=== PATIENT | male | born 1950 | race Caucasian/White ===

== ENCOUNTER 2016-11-24 10:47 | Day surgery (SDC) | payer OTHER ==
[~2016-11-24 10:47] MED LIST: Betamethasone Acetate/Betamethasone Sod Phosphate 30 MG/5 ML MDV ONE; Iopamidol 408 MG/ML 50 ML SDV ONE; Lidocaine 2% 5 ML SDV ONE; Ropivacaine 0.5% 5 MG/ML 30 ML SDV ONE
--- NOTE | 2016-11-24 23:02 | OR ---
SURGEON: Dana Kinney D.O. DATE OF PROCEDURE: 11/24/2016 OR STAFF PRESENT: 1. Lily Garcia RN. 2. Dari Stover RN. WARP TYING MACHINE TENDER: Kiley Alexander RT WOUND CLASSIFICATION: I. PREOPERATIVE DIAGNOSES: 1. Lumbar degenerative disk disease. 2. Lumbar spinal stenosis. 3. Lumbar radiculopathy. Post OP DX: same PROCEDURE PERFORMED: 1. Caudal epidural steroid injection. 2. Fluoroscopic guidance for needle placement. 3. Local with oral Valium for sedation. SCREENING QUESTIONS: The patient answered "no" to all of the following questions: 1. Are you allergic to latex? 2. Do you have a bleeding disorder? 3. Do you have any current local or systemic infections? 4. Are you taking any anti-inflammatories or blood thinners? 5. Do you have any joint replacements, heart valve replacements, or a pacemaker? DESCRIPTION OF PROCEDURE: The patient had the procedure thoroughly explained including all possible risks, benefits and alternatives. Consent was signed in my clinic indicating understanding and willingness to proceed. The patient presented to [facility] and was escorted to the dressing room to disrobe and change into a hospital gown. Preoperative vital signs were taken and stable. The patient reported that Valium was taken prior to the procedure. The patient was brought back to the procedure room and placed in the prone position on the procedure room table. A pillow was placed under the hips in order to flatten the lumbar lordosis. The back was prepped with ChloraPrep and sterilely draped. All personnel in the operating room were dressed in appropriate attire including surgical scrubs, head and shoe covers. This was to ensure sterility while in the treatment room. During the time fluoroscopy was in use, all personnel in the operating room wore lead elias with thyroid collars. Sterile technique was used throughout the procedure. The patient was awake and conversant throughout the procedure. There was no evidence of infection at the site of needle insertion. Skeletal landmarks were identified under fluoroscopy for the caudal epidural. Skin was anesthetized with 2% lidocaine with a sterile 27-gauge 1.5 inch needle. Then a 20-gauge Tuohy epidural needle was placed in the epidural space with loss of resistance technique under fluoroscopic guidance. No heme, cerebrospinal fluid, or paresthesias were noted. Isovue-200 contrast dye was injected in 0.2 cubic centimeter increments and seen to outline the epidural space in both AP and lateral views. There was no intravascular flow pattern observed under live fluoroscopy. Then 12 milligrams of Celestone was slowly injected after negative aspiration. The patient tolerated the procedure well. Vital signs were stable during and after the procedure. The staff escorted the patient to the recovery area and the patient was released in stable condition after a brief stay in the recovery room monitored by the nurse. The patient was given both oral and written discharge and follow up instructions with recommendation to follow up given for 2-3 weeks. The patient voiced understanding including understanding of those signs and symptoms that would require emergency care. The patient knows how to contact the office if there are any additional problems or questions in the meantime. PREOPERATIVE PAIN: 6/10. POSTOPERATIVE PAIN: 0/10. FOLLOWUP: Follow up in the Pain Clinic in 3 weeks. DORIS / GERMAIN /[id number] LOPEZ
== END 2016-11-24 13:00 | disposition home or self-care (01) ==
LOC: MW.SDS 10:47
PROVIDERS: ATTEND Anesthesiology
DX: M51.16 Intervertebral disc disorders with radiculopathy, lumbar region (principal); M48.06 Spinal stenosis, lumbar region; Z79.82 Long term (current) use of aspirin; Z79.899 Other long term (current) drug therapy; Z86.39 Personal history of other endocrine, nutritional and metabolic disease; Z87.891 Personal history of nicotine dependence
CPT/HCPCS: 62311; 62323; J0702; Q9966; 62322; J2795

== ENCOUNTER 2016-12-24 11:00 | Day surgery (SDC) | payer OTHER ==
[2016-12-24] MEDS ORDERED: Betamethasone Acetate/Betamethasone Sod Phosphate 30 MG/5 ML MDV ONE (12:33)
[2016-12-24] MEDS ORDERED: Lidocaine 2% 5 ML SDV ONE (12:33)
[2016-12-24] MEDS ORDERED: Ropivacaine 0.5% 5 MG/ML 30 ML SDV ONE (12:33)
[2016-12-24] MEDS ORDERED: Iopamidol 408 MG/ML 50 ML SDV ONE (12:33)
--- NOTE | 2016-12-31 07:07 | OR ---
SURGEON: Dana Kinney D.O. DATE OF PROCEDURE: 12/24/2016 OR STAFF PRESENT: 1. Parminder Stevenson RN. 2. Roverto Sandhu RN. 3. Madhavi Torres RN. WOUND CLASSIFICATION: I. TELEPHONE INFORMATION CLERK: Katie Brown. PREOPERATIVE DIAGNOSES: 1. Lumbar spondylosis. 2. Lumbar facet syndrome. POSTOPERATIVE DIAGNOSES: 1. Lumbar spondylosis. 2. Lumbar facet syndrome. PREOPERATIVE PAIN: 8/10. POSTOPERATIVE PAIN: 0/10. FOLLOWUP: Follow up in the pain clinic with pain diary in the morning. PROCEDURE PERFORMED: Right L3, L4, L5 lumbar medial branch blocks. Left L3,L4,L5 lumbar medial branch blocks SCREENING QUESTIONS: The patient answered "No" to all the following questions: 1. Are you allergic to iodine, Betadine or latex? 2. Do you have a bleeding disorder? 3. Are you on anti-inflammatories or blood thinners? 4. Do you have any current local or systemic infections? MEDICAL NECESSITY: This is a patient with chronic low back pain who comes in for the above diagnostic procedure. This procedure is being performed in accordance with national guidelines written by the [employer]; please see medical necessity note in chart. DESCRIPTION OF PROCEDURE: The patient had the procedure thoroughly explained including risks, benefits and alternatives. Consent was signed in my clinic indicating understanding and willingness to proceed. The patient presented to [facility] and was escorted to the dressing room to disrobe and change into a hospital gown. Preoperative history and screening were performed by my nurse. Vital signs were taken and stable. The patient reported that Valium 10 milligrams was taken prior to the procedure. The patient was brought back to the procedure room and placed in the prone position on the procedure room table. A pillow was placed under the abdomen in order to flatten the lumbar lordosis. The back was prepped with ChloraPrep and sterilely draped. All personnel in the procedure room were dressed in appropriate attire including surgical scrubs, head and shoe covers. This was to ensure sterility while in the treatment room. During the time fluoroscopy was in use all personnel in the operating room wore lead elias with thyroid collars. Sterile technique was used during the procedure. The fluoroscope was positioned to provide a right oblique view. Then the right L3 medial branch block was begun by anesthetizing the skin and soft tissues with 2 cubic centimeters of 2% Preservative-Free Lidocaine with a 25-gauge 1.5 inch needle. There were no signs of infection at the site of needle skin insertions. Using fluoroscopic guidance a sterile 22-gauge 3.5 inch spinal needle was positioned at the junction of the transverse process with the superior articular process of the L4 vertebral body. Precise needle placement was confirmed by fluoroscopy and 0.2 cubic centimeters of IsoVue-200 contrast dye which was injected through microbore tubing under live fluoroscopy and showed no intravascular flow pattern and adequate flow over the target L3 medial branch. Then 0.5 cubic centimeters of 0.5% Ropivacaine Preservative-Free was injected slowly without complications after negative aspiration. Then the fluoroscope was positioned to provide a right oblique view for the right L4 medial branch. This was begun by anesthetizing the skin and soft tissues. The fluoroscope was positioned and a sterile 22-gauge 3.5 inch needle was placed at the junction of the transverse process in the superior articular process of the L5 vertebral body. Precise needle placement was confirmed by fluoroscopy. Then 0.2 cubic centimeters of IsoVue-200 contrast dye was injected through microbore tubing under live fluoroscopy and showed no intravascular flow pattern and adequate flow over the target medial branch. After negative aspiration, 0.5 cubic centimeters of 0.5% Ropivacaine was injected without complications. The fluoroscope was then positioned to provide a right L5 dorsal ramus block. This was begun by anesthetizing the skin and soft tissues over the right sacral sulcus. Then using fluoroscopic guidance, a sterile 22-gauge 3.5 inch spinal needle was positioned at the right sacral ala. Precise needle placement was confirmed by fluoroscopy in AP and oblique views, and 0.2 cubic centimeters of IsoVue-200 contrast dye was injected through microbore tubing under live fluoroscopy and showed no intravascular flow pattern and adequate flow over the target nerves. After negative aspiration, 0.5 cubic centimeters of 0.5% Ropivacaine was injected. No complications were noted. Then attention was turned to the left side. The fluoroscope was positioned to provide a left oblique view for the left L3 medial branch block. This was begun by anesthetizing the skin and soft tissues. Then a 22-gauge 3.5 inch needle was positioned at the junction of the transverse process and the superior articular process at the left L4 vertebral body. Precise needle placement was confirmed by fluoroscopy with 0.2 cubic centimeters of IsoVue-200 contrast dye injected through microbore tubing under live fluoroscopy showing no intravascular flow pattern and adequate flow over the target medial branch of L3 on the left. After negative aspiration, 0.5 cubic centimeters of 0.5% Ropivacaine was injected without complications. The fluoroscope was positioned then to provide a left L4 medial branch block. The skin was anesthetized. Then a 22-gauge 3.5 inch spinal needle was positioned at the junction of the transverse process in the superior articular process of the L5 vertebral body on the left. Precise needle placement was confirmed by fluoroscopy and with 0.2 cubic centimeters of IsoVue-200 contrast dye injected through microbore tubing showing no intravascular flow pattern and adequate flow over the target medial branch of L4 on the left. Then 0.5 cubic centimeters of 0.5% Ropivacaine was injected after negative aspiration without complications. Then the fluoroscope was positioned for the left L5 dorsal ramus block. This was begun by anesthetizing the skin and soft tissues. Then with fluoroscopic guidance a sterile 22-gauge 3.5 inch spinal needle was positioned at the left sacral ala. Precise needle placement was confirmed with 0.2 cubic centimeters of IsoVue-200 contrast dye injected through microbore tubing under live fluoroscopy showing no intravascular flow pattern and adequate flow over the target L5 nerve and then 0.5 cc .5% ropivicaine was injected. The procedure was well tolerated and vital signs were stable during and after the procedure. The staff escorted the patient to the recovery area. The patient was given both oral and written discharge and followup instructions. The patient will follow up with a pain diary which will be evaluated over this evening doing things that would normally cause pain. We will evaluate the efficacy of the diagnostic lumbar medial branch blocks as the patient will follow up in the clinic the next day. The patient was given both oral and written discharge and followup instructions. The patient voiced understanding including understanding of those signs and symptoms that would require emergency care and knows how to contact the office if there are any questions or concerns in the meantime. DORIS / GERMAIN /[id number] LOPEZ
== END 2016-12-24 13:30 | disposition home or self-care (01) ==
LOC: MW.SDS 11:00
PROVIDERS: ATTEND Anesthesiology
DX: M47.896 Other spondylosis, lumbar region (principal); M12.88 Other specific arthropathies, not elsewhere classified, other specified site; G89.4 Chronic pain syndrome; M54.16 Radiculopathy, lumbar region; E11.9 Type 2 diabetes mellitus without complications; Z87.891 Personal history of nicotine dependence; Z79.82 Long term (current) use of aspirin; Z79.84 Long term (current) use of oral hypoglycemic drugs; Z79.4 Long term (current) use of insulin; Z79.899 Other long term (current) drug therapy
CPT/HCPCS: 64450; 64493; 64494; J2795; Q9966; J0702

== ENCOUNTER 2016-12-31 11:12 | Day surgery (SDC) | payer OTHER ==
[2016-12-31] MEDS ORDERED: Betamethasone Acetate/Betamethasone Sod Phosphate 30 MG/5 ML MDV ONE (11:24)
[2016-12-31] MEDS ORDERED: Lidocaine 2% 5 ML SDV ONE (11:24)
[2016-12-31] MEDS ORDERED: Ropivacaine 0.5% 5 MG/ML 30 ML SDV ONE (11:24)
[2016-12-31] MEDS ORDERED: Iopamidol 408 MG/ML 50 ML SDV ONE (11:24)
--- NOTE | 2016-12-31 18:07 | OR ---
SURGEON: Dana Kinney D.O. DATE OF PROCEDURE: 12/31/2016 OR STAFF PRESENT: 1. Lily Garcia RN. 2. Parminder Stevenson RN. 3. Madhavi Torres RN. PREOPERATIVE DIAGNOSES: 1. Lumbar spondylosis. 2. Chronic low back pain. POSTOPERATIVE DIAGNOSES: 1. Lumbar spondylosis. 2. Chronic low back pain. PROCEDURE PERFORMED: 1. Right L5-S1 facet joint injection. 2. Fluoroscopic guidance for needle placement. 3. Local with oral Valium for sedation. SCREENING QUESTIONS: The patient answered "no" to all of the following questions: 1. Are you allergic to iodine, Betadine or latex? 2. Do you have a bleeding disorder? 3. Do you have any joint replacements, heart valve replacements, or a pacemaker? 4. Are you allergic to anti-inflammatories or blood thinners? 5. Do you have any current local or systemic infections? DESCRIPTION OF PROCEDURE: The patient had the procedure thoroughly explained including risks, benefits and alternatives. Consent was signed in my clinic indicating understanding and willingness to proceed. The patient presented to [facility] where the patient was escorted to the dressing room to disrobe and change into a hospital gown. Preoperative vital signs were taken and stable. The patient reported that Valium was taken prior to the procedure. The patient was brought to the procedure room and placed in the prone position on the table. A pillow was placed under the abdomen in order to flatten the lumbar lordosis. The back was prepped with ChloraPrep and sterilely draped. All personnel in the operating room were dressed in appropriate attire including surgical scrubs, head and shoe covers. This was to ensure sterility while in the treatment room. During the time fluoroscopy was in use, all personnel in the operating room wore lead elias with thyroid collars. Sterile technique was used during the procedure. The fluoroscope was placed for the lumbar L5- S1 facet injection. There was no sign of infection at the skin site for needle insertion. The skin was anesthetized with 2% lidocaine with a 27 gauge 1-1/2 inch needle. Then a 22 gauge 3-1/2 inch spinal needle, advanced to the " ear of the leslie dog". Under direct fluoroscopic guidance needle position at midline facet was verified in three views; AP, oblique and lateral, with 0.2 cubic centimeters increments of Isovue-200 dye. No intravascular flow pattern was observed under live fluoroscopy. A total of 6 milligrams of Celestone and 2% lidocaine PF was slowly injected after negative aspiration of heme, cerebrospinal fluid and no paresthesias were noted. The needle was cleared prior to removal from the skin. No adverse reactions were noted. The patient was brought to the recovery room awake and in good condition by my staff. The patient was monitored and discharge instructions were given after a brief stay in the recovery area. Both oral and written discharge and follow up instructions were given. The patient will follow up in the clinic in 3-4 weeks post procedure to evaluate the efficacy. The patient verbalized understanding including understanding of those signs and symptoms that would require emergency care and knows how to contact the office if there are any problems or questions in the meantime. PREOPERATIVE PAIN: 8/10. POSTOPERATIVE PAIN: 1 to 2. FOLLOWUP: Follow up in the Pain Clinic in 3 weeks. DORIS / GERMAIN /[id number] LOPEZ
== END 2016-12-31 12:55 | disposition home or self-care (01) ==
LOC: MW.SDS 11:12
PROVIDERS: ATTEND Anesthesiology
PROC: 3E0U3BZ Introduction of Anesthetic Agent into Joints, Percutaneous Approach (ICD-10-PCS; principal; 2016-12-31)
DX: M47.896 Other spondylosis, lumbar region (principal); G89.4 Chronic pain syndrome; M54.16 Radiculopathy, lumbar region; E11.9 Type 2 diabetes mellitus without complications; Z87.891 Personal history of nicotine dependence; Z79.4 Long term (current) use of insulin; Z79.84 Long term (current) use of oral hypoglycemic drugs; Z79.899 Other long term (current) drug therapy
CPT/HCPCS: 64493; J0702; J2795; Q9966

== ENCOUNTER → 2017-02-03 | Outpatient (CLI) | payer OTHER ==
--- NOTE | 2017-02-04 10:40 | MR ---
EXAMINATION: MRI of thoracic spine HISTORY: Radiculopathy COMPARISON: None TECHNIQUE: Multiplanar and multisequence images obtained through the thoracic spine without contrast . FINDINGS: The thoracic spinal alignment is normal. The vertebral body heights appear well maintained . There is no abnormal bone marrow signal. Small hemangiomas are noted at the T9 and T11 vertebral b odies. The thoracic spinal cord signal is normal. The paravertebral soft tissues appear normal. Ther e is no significant disc bulge, spinal canal stenosis, neural foraminal stenosis. IMPRESSION: Grossly unremarkable MRI of thoracic spine.
== END ==
LOC: MW.MRI 14:22
PROVIDERS: ATTEND Anesthesiology
DX: M54.9 Dorsalgia, unspecified (principal); M54.16 Radiculopathy, lumbar region
CPT/HCPCS: 72146; 72146-26

== ENCOUNTER 2017-09-29 23:04 | Emergency (ER) | payer OTHER ==
[2017-09-29] MEDS ORDERED: Sodium Chloride 0.9% 1,000 ML IV ONE (23:10)
--- NOTE | 2017-09-29 23:11 | EDM.PDOC ---
ED HPI GENERAL MEDICAL PROBLEM - General Chief Complaint: Diabetic Complaint Stated Complaint: LOW BLOOD SUGAR Time Seen by Provider: 09/29/17 23:11 Source of Information: Reports: Patient - History of Present Illness INITIAL COMMENTS - FREE TEXT/NARRATIVE: HISTORY AND PHYSICAL: History of present illness: [Patient presents with a history of low blood sugar after taking his evening Lantus dose, after dinner tonight he took his evening Lantus of 35 units and noted that his glucose was 50 which prompted him to eat more dinner as well as some ice cream and candy. He presents by private vehicle as such On arrival was glucose is 69 we have been watching and that is been trending up over the last hour to hour and a half previous glucose was 122 we will be rechecking him again shortly. On arrival his blood pressure was 80/60 cuff size was changed his blood pressure is been in the 120s over 60s since he does check his blood pressure daily and this is his normal blood pressure He has no symptoms such as fever nausea vomiting diarrhea constipation chest pain shortness breath headache dizziness palpitation about a urine symptoms no diaphoresis ] Review of systems: As per history of present illness and below otherwise all systems reviewed and negative. Past medical history: As per history of present illness and as reviewed below otherwise noncontributory. Surgical history: As per history of present illness and as reviewed below otherwise noncontributory. Social history: No reported history of drug or alcohol abuse. Family history: As per history of present illness and as reviewed below otherwise noncontributory. Physical exam: HEENT: Atraumatic, normocephalic, pupils reactive, negative for conjunctival pallor or scleral icterus, mucous membranes moist, throat clear, neck supple, nontender, trachea midline. Lungs: Clear to auscultation, breath sounds equal bilaterally, chest nontender. Heart: S1S2, regular, negative for clicks, rubs, or JVD. Abdomen: Soft, nondistended, nontender. Negative for masses or hepatosplenomegaly. Negative for costovertebral tenderness. Pelvis: Stable nontender. Genitourinary: Deferred. Rectal: Deferred. Extremities: Atraumatic, negative for cords or calf pain. Neurovascular unremarkable. Neuro: Awake, alert, oriented. Cranial nerves II through XII unremarkable. Cerebellum unremarkable. Motor and sensory unremarkable throughout. Exam nonfocal. Diagnostics: []CBC CMP UA troponin I EKG Chest 1 view Therapeutics: []1 L normal saline bolus initiated stopped after 500 mL Impression: [Hypotension secondary to cuff size Hypoglycemia resolved stable and actually increasing Chronic history of baseline] Definitive disposition and diagnosis as appropriate pending reevaluation and review of above. - Related Data Allergies Allergy/AdvReac Type Severity Reaction Status Date / Time No Known Allergies Allergy Verified 09/29/17 23:21 Home Meds: Home Meds Aspirin [[place] Aspirin] 81 mg PO DAILY 11/11/16 [History] Gabapentin [Neurontin] 100 mg PO TID 11/11/16 [History] Hydrochlorothiazide 25 mg PO DAILY 11/11/16 [History] Lisinopril 20 mg PO DAILY 11/11/16 [History] [place]-3S/DHA/Epa/Fish Oil [Fish Oil [place]-3 Softgel] 1 each PO DAILY 11/11/16 [ History] Tamsulosin HCl [Flomax] 0.4 mg PO DAILY 11/11/16 [History] amLODIPine [Norvasc] 10 mg PO BEDTIME 11/11/16 [History] atorvaSTATin Calcium [Atorvastatin Calcium] 80 mg PO BEDTIME 11/11/16 [History] metFORMIN HCl [Metformin HCl] 1,000 mg PO BID 11/11/16 [History] Past Medical History HEENT History: Reports: Impaired Vision Cardiovascular History: Reports: Hypertension Respiratory History: Reports: None, Other (See Below) Other Respiratory History: pt reports being treated with steriod to help breathing Gastrointestinal History: Reports: None Genitourinary History: Reports: Other (See Below) Other Genitourinary History: difficulty intiating urine flow Musculoskeletal History: Reports: Back Pain, Chronic Neurological History: Reports: None Psychiatric History: Reports: None Endocrine/Metabolic History: Reports: Diabetes, Type II - Infectious Disease History Infectious Disease History: Reports: Chicken Pox Social & Family History - Family History Family Medical History: Noncontributory - Tobacco Use Smoking Status *Q: Former Smoker - Recreational Drug Use Recreational Drug Use: Yes Drug Use in Last 12 Months: No Recreational Drug Type: Reports: Marijuana/Hashish ED ROS GENERAL - Review of Systems Review Of Systems: ROS reveals no pertinent complaints other than HPI. ED EXAM GENERAL NO PERIP PULSE - Physical Exam Exam: See Below Course - Vital Signs Last Recorded V/S: Last Vital Signs Temp 97.7 F 09/29/17 23:04 Pulse 91 09/29/17 23:57 Resp 18 09/29/17 23:57 BP 108/60 09/29/17 23:57 Pulse Ox 97 09/29/17 23:57 - Orders/Labs/Meds Orders: Active Orders 24 hr Category Date Time Status Accu Check [Blood Glucose Check, Bedside] [RC] ONETIME Care 09/29/17 23:10 Active EKG Documentation Completion [RC] STAT Care 09/29/17 23:09 Active Chest 1V Frontal [CR] Stat Exams 09/29/17 23:12 Taken Labs: Laboratory Tests 09/29/17 09/29/17 09/29/17 Range/Units 23:15 23:15 23:34 WBC 8.33 (4.0-11.0) K/uL RBC 4.73 (4.50-5.90) M/uL Hgb 12.1 L (13.0-17.0) g/dL Hct 38.5 (38.0-50.0) % MCV 81.4 (80.0-98.0) fL MCH 25.6 L (27.0-32.0) pg MCHC 31.4 (31.0-37.0) g/dL RDW Std Deviation 45.9 (28.0-62.0) fl RDW Coeff of Rachel 16 H (11.0-15.0) % Plt Count 281 (150-400) K/uL MPV 10.40 (7.40-12.00) fL Neut % (Auto) 48.8 (48.0-80.0) % Lymph % (Auto) 36.3 (16.0-40.0) % Ashley % (Auto) 10.8 (0.0-15.0) % Eos % (Auto) 3.6 (0.0-7.0) % Baso % (Auto) 0.5 (0.0-1.5) % Neut # (Auto) 4.1 (1.4-5.7) K/uL Lymph # (Auto) 3.0 H (0.6-2.4) K/uL Ashley # (Auto) 0.9 H (0.0-0.8) K/uL Eos # (Auto) 0.3 (0.0-0.7) K/uL Baso # (Auto) 0.0 (0.0-0.1) K/uL Nucleated RBC % 0.0 /100WBC Nucleated RBCs # 0 K/uL Sodium 144 (136-146) mmol/L Potassium 3.8 (3.5-5.1) mmol/L Chloride 103 (98-110) mmol/L Carbon Dioxide 27 (21-31) mmol/L BUN 30 H (6.0-23.0) mg/dL Creatinine 1.2 (0.6-1.5) mg/dL Est Cr Clr Drug Dosing 58.14 mL/min Estimated GFR (MDRD) > 60.0 ml/min Glucose 82 (60-110) mg/dL POC Glucose (60-110) mg/dL Calcium 9.7 (8.8-10.8) mg/dL Total Bilirubin 0.4 (0.1-1.5) mg/dL AST 15 (5-40) IU/L ALT 11 (8-54) IU/L Alkaline Phosphatase 92 (40-150) Troponin I < 0.10 (0.0-0.29) NG/ML Total Protein 6.9 (6.0-8.0) g/dL Albumin 4.0 (3.4-4.8) g/dL Globulin 2.9 (2.0-3.5) g/dL Albumin/Globulin Ratio 1.4 (1.3-2.8) Amylase 66 (10-90) U/L Lipase 21 (7-80) U/L Urine Color YELLOW Urine Appearance CLEAR Urine pH 6.0 (5.0-8.0) Ur Specific [place] 1.025 (1.001-1.035) Urine Protein NEGATIVE (NEGATIVE) mg/dL Urine Glucose (UA) NEGATIVE (NEGATIVE) mg/dL Urine Ketones TRACE H (NEGATIVE) mg/dL Urine Occult Blood NEGATIVE (NEGATIVE) Urine Nitrite NEGATIVE (NEGATIVE) Urine Bilirubin NEGATIVE (NEGATIVE) Urine Urobilinogen 0.2 (<2.0) EU/dL Ur Leukocyte Esterase NEGATIVE (NEGATIVE) Urine RBC 0-1 (0-2/HPF) Urine WBC 0-1 (0-5/HPF) Ur Epithelial Cells RARE (NONE-FEW) Urine Bacteria RARE (NEGATIVE) Urine Mucus LIGHT (NONE-MOD) 09/30/17 Range/Units 00:18 WBC (4.0-11.0) K/uL RBC (4.50-5.90) M/uL Hgb (13.0-17.0) g/dL Hct (38.0-50.0) % MCV (80.0-98.0) fL MCH (27.0-32.0) pg MCHC (31.0-37.0) g/dL RDW Std Deviation (28.0-62.0) fl RDW Coeff of Rachel (11.0-15.0) % Plt Count (150-400) K/uL MPV (7.40-12.00) fL Neut % (Auto) (48.0-80.0) % Lymph % (Auto) (16.0-40.0) % Ashley % (Auto) (0.0-15.0) % Eos % (Auto) (0.0-7.0) % Baso % (Auto) (0.0-1.5) % Neut # (Auto) (1.4-5.7) K/uL Lymph # (Auto) (0.6-2.4) K/uL Ashley # (Auto) (0.0-0.8) K/uL Eos # (Auto) (0.0-0.7) K/uL Baso # (Auto) (0.0-0.1) K/uL Nucleated RBC % /100WBC Nucleated RBCs # K/uL Sodium (136-146) mmol/L Potassium (3.5-5.1) mmol/L Chloride (98-110) mmol/L Carbon Dioxide (21-31) mmol/L BUN (6.0-23.0) mg/dL Creatinine (0.6-1.5) mg/dL Est Cr Clr Drug Dosing mL/min Estimated GFR (MDRD) ml/min Glucose (60-110) mg/dL POC Glucose 122 H (60-110) mg/dL Calcium (8.8-10.8) mg/dL Total Bilirubin (0.1-1.5) mg/dL AST (5-40) IU/L ALT (8-54) IU/L Alkaline Phosphatase (40-150) Troponin I (0.0-0.29) NG/ML Total Protein (6.0-8.0) g/dL Albumin (3.4-4.8) g/dL Globulin (2.0-3.5) g/dL Albumin/Globulin Ratio (1.3-2.8) Amylase (10-90) U/L Lipase (7-80) U/L Urine Color Urine Appearance Urine pH (5.0-8.0) Ur Specific [place] (1.001-1.035) Urine Protein (NEGATIVE) mg/dL Urine Glucose (UA) (NEGATIVE) mg/dL Urine Ketones (NEGATIVE) mg/dL Urine Occult Blood (NEGATIVE) Urine Nitrite (NEGATIVE) Urine Bilirubin (NEGATIVE) Urine Urobilinogen (<2.0) EU/dL Ur Leukocyte Esterase (NEGATIVE) Urine RBC (0-2/HPF) Urine WBC (0-5/HPF) Ur Epithelial Cells (NONE-FEW) Urine Bacteria (NEGATIVE) Urine Mucus (NONE-MOD) Meds: Medications Discontinued Medications Generic Name Dose Route Start Last Admin Trade Name Freq PRN Reason Stop Dose Admin Sodium Chloride 1,000 mls @ 999 mls/hr 09/29/17 23:10 09/29/17 23:29 Normal Saline IV 09/30/17 00:10 999 mls/hr STAT ONE Administration Departure - Departure Time of Disposition: 01:02 Disposition: Home, Self-Care 01 Condition: Good Clinical Impression: Hypoglycemia - Discharge Information Referrals: Shannan Ferguson FI[employer] SPECIALIST [Primary Care Provider] - Forms: ED Department Discharge Additional Instructions: The following information is given to patients seen in the emergency department who are being discharged to home. This information is to outline your options for follow-up care. We provide all patients seen in our emergency department with a follow-up referral. The need for follow-up, as well as the timing and circumstances, are variable depending upon the specifics of your emergency department visit. If you don't have a primary care physician on staff, we will provide you with a referral. We always advise you to contact your personal physician following an emergency department visit to inform them of the circumstance of the visit and for follow-up with them and/or the need for any referrals to a consulting specialist. The emergency department will also refer you to a specialist when appropriate. This referral assures that you have the opportunity for follow-up care with a specialist. All of these measure are taken in an effort to provide you with optimal care, which includes your follow-up. Under all circumstances we always encourage you to contact your private physician who remains a resource for coordinating your care. When calling for follow-up care, please make the office aware that this follow-up is from your recent emergency room visit. If for any reason you are refused follow-up, please contact the [facility] emergency department at and asked to speak to the emergency department charge nurse. - My Orders Last 24 Hours: My Active Orders 09/29/17 23:09 EKG Documentation Completion [RC] STAT 09/29/17 23:10 Accu Check [Blood Glucose Check, Bedside] [RC] ONETIME 09/29/17 23:12 Chest 1V Frontal [CR] Stat - Assessment/Plan Last 24 Hours: My Active Orders 09/29/17 23:09 EKG Documentation Completion [RC] STAT 09/29/17 23:10 Accu Check [Blood Glucose Check, Bedside] [RC] ONETIME 09/29/17 23:12 Chest 1V Frontal [CR] Stat
[2017-09-29 23:44] LABS: CHLORIDE,CL 103 mmol/L (98-110); SODIUM,NA 144 mmol/L (136-146)
[2017-09-30 01:03] VITALS: BP 112/63
--- NOTE | 2017-09-30 09:12 | CR ---
EXAM DATE: 09/29/17 PATIENT'S AGE: 66 Patient: JONNATHAN PARKER Facility: [place], [place] Site . Site : 1950 Study: XRay Chest [id number] 11:32:42 PM Ordering Physician: Belia Silver Final Report: Indication: Low blood sugar. Comparison: None. Findings: The bony thorax and soft tissues are intact. Cardiac and mediastinal silhouettes are normal. The pulmonary vasculature is normal. The lungs are free of infiltrate. Impression: No active cardiopulmonary disease. Dictated by Noemy Nance MD @ Sep 29 2017 11:35PM (Electronic Signature) Report Signed by Proxy. [facility]
== END 2017-09-30 01:13 | disposition home or self-care (01) ==
LOC: MW.ED 23:04
DX: E11.649 Type 2 diabetes mellitus with hypoglycemia without coma (principal); I95.9 Hypotension, unspecified; I10 Essential (primary) hypertension; Z79.82 Long term (current) use of aspirin; Z79.84 Long term (current) use of oral hypoglycemic drugs; Z79.899 Other long term (current) drug therapy; Z87.891 Personal history of nicotine dependence
CPT/HCPCS: 71045; 80053; 81001; 82150; 82962; 83690; 84484; 85025; 93005; 96360; 99285; J7040; 99283

== ENCOUNTER 2019-04-22 19:34 | Emergency (ER) | payer OTHER, MEDICARE ==
--- NOTE | 2019-04-22 19:48 | EDM.PDOC ---
ED HPI GENERAL MEDICAL PROBLEM - General Chief Complaint: Genitourinary Problem Stated Complaint: NOT VOIDING Time Seen by Provider: 04/22/19 19:42 - History of Present Illness INITIAL COMMENTS - FREE TEXT/NARRATIVE: HISTORY AND PHYSICAL: History of present illness: Patient is a 68-year-old male with history of diabetes and hypertension who was recently treated for herpes zoster who presents with concern of acute urinary retention states last significant urination was he states he does normally urinates frequent small amounts but has not been told of any prostate pathology prior to this. Patient denies fever chills he has had some associated nausea Review of systems: As per history of present illness and below otherwise all systems reviewed and negative. Past medical history: As per history of present illness and as reviewed below otherwise noncontributory. Surgical history: As per history of present illness and as reviewed below otherwise noncontributory. Social history: No reported history of drug or alcohol abuse. Family history: As per history of present illness and as reviewed below otherwise noncontributory. Physical exam: HEENT: Atraumatic, normocephalic, pupils reactive, negative for conjunctival pallor or scleral icterus, mucous membranes moist, throat clear, neck supple, nontender, trachea midline. Lungs: Clear to auscultation, breath sounds equal bilaterally, chest nontender. Heart: S1S2, regular, negative for clicks, rubs, or JVD. Abdomen: Soft, protuberant with suprapubic fullness and tenderness consistent with bladder distention. Negative for masses or hepatosplenomegaly. Negative for costovertebral tenderness. Pelvis: Stable nontender. Genitourinary: Deferred. Rectal: Deferred. Extremities: Atraumatic, negative for cords or calf pain. Neurovascular unremarkable. Neuro: Awake, alert, oriented. Cranial nerves II through XII unremarkable. Cerebellum unremarkable. Motor and sensory unremarkable throughout. Exam nonfocal. Diagnostics: CBC CMP UA Therapeutics: Thompson catheter with leg bag Impression: #1 acute urinary retention #2 history of diabetes #3 history of recent herpes zoster #4 history of hypertension Definitive disposition and diagnosis as appropriate pending reevaluation and review of above. - Related Data Allergies Allergy/AdvReac Type Severity Reaction Status Date / Time No Known Allergies Allergy Verified 04/22/19 19:44 Home Meds: Home Meds Aspirin [[place] Aspirin] 81 mg PO DAILY 11/11/16 [History] Lisinopril 10 mg PO DAILY 11/11/16 [History] Tamsulosin HCl [Flomax] 0.8 mg PO DAILY 11/11/16 [History] amLODIPine [Norvasc] 10 mg PO BEDTIME 11/11/16 [History] atorvaSTATin Calcium [Atorvastatin Calcium] 80 mg PO BEDTIME 11/11/16 [History] hydroCHLOROthiazide [Hydrochlorothiazide] 25 mg PO DAILY 11/11/16 [History] metFORMIN HCl [Metformin HCl] 1,000 mg PO BID 11/11/16 [History] Albuterol Sulfate [Proair Respiclick] 90 mcg IH ASDIRECTED 04/22/19 [History] Alogliptin Benzoate [Alogliptin] 25 mg PO DAILY 04/22/19 [History] Budesonide/Formoterol [Symbicort 160-4.5 MCG] 1 puff INH BID 04/22/19 [History] Insulin Aspart [NovoLOG] 8 unit SUBCUT TID 04/22/19 [History] Insulin Glarg,Human.Rec.Analog [Lantus Solostar] 50 unit SUBCUT DAILY 04/22/19 [ History] Latanoprost/Pf [Latanoprost 0.005% Eye Drop] 7.5 ml OP BEDTIME 04/22/19 [History ] Magnesium Oxide 840 mg PO DAILY 04/22/19 [History] Terazosin HCl [Terazosin] 2 mg PO BEDTIME 04/22/19 [History] valACYclovir [Valtrex] 3,000 mg PO ASDIRECTED 04/22/19 [History] Past Medical History - Past Health History Medical/Surgical History: Denies Medical/Surgical History HEENT History: Reports: Impaired Vision Other HEENT History: wears glasses Cardiovascular History: Reports: Hypertension Respiratory History: Reports: None, Other (See Below) Other Respiratory History: pt reports being treated with steriod to help breathing Gastrointestinal History: Reports: None Genitourinary History: Reports: Other (See Below) Other Genitourinary History: difficulty intiating urine flow Musculoskeletal History: Reports: Back Pain, Chronic Neurological History: Reports: None Psychiatric History: Reports: None Endocrine/Metabolic History: Reports: Diabetes, Type II - Infectious Disease History Infectious Disease History: Reports: Chicken Pox - Past Surgical History GI Surgical History: Reports: Hernia, Abdominal Social & Family History - Family History Family Medical History: Noncontributory ED ROS GENERAL - Review of Systems Review Of Systems: ROS reveals no pertinent complaints other than HPI. ED EXAM, GENERAL - Physical Exam Exam: See Below (See dictation) Course - Vital Signs Last Recorded V/S: Last Vital Signs Temp 36.4 C 04/22/19 19:42 Pulse 102 H 04/22/19 19:42 Resp BP 142/73 H 04/22/19 19:42 Pulse Ox 96 04/22/19 19:42 - Orders/Labs/Meds Orders: Active Orders 24 hr Category Date Time Status Thompson Catheter Insertion [Insert Urinary Catheter] [OM. Care 04/22/19 20:00 Ordered PC] Q24H RT Aerosol Therapy [RC] ASDIRECTED Care 04/22/19 21:05 Active Labs: Laboratory Tests 04/22/19 04/22/19 04/22/19 Range/Units 20:04 20:04 20:25 WBC 9.02 (4.0-11.0) K/uL RBC 4.26 L (4.50-5.90) M/uL Hgb 12.1 L (13.0-17.0) g/dL Hct 37.3 L (38.0-50.0) % MCV 87.6 (80.0-98.0) fL MCH 28.4 (27.0-32.0) pg MCHC 32.4 (31.0-37.0) g/dL RDW Std Deviation 42.7 (28.0-62.0) fl RDW Coeff of Rachel 13 (11.0-15.0) % Plt Count 210 (150-400) K/uL MPV 10.90 (7.40-12.00) fL Neut % (Auto) 64.6 (48.0-80.0) % Lymph % (Auto) 24.5 (16.0-40.0) % [place] % (Auto) 10.1 (0.0-15.0) % Eos % (Auto) 0.6 (0.0-7.0) % Baso % (Auto) 0.2 (0.0-1.5) % Neut # (Auto) 5.8 H (1.4-5.7) K/uL Lymph # (Auto) 2.2 (0.6-2.4) K/uL [place] # (Auto) 0.9 H (0.0-0.8) K/uL Eos # (Auto) 0.1 (0.0-0.7) K/uL Baso # (Auto) 0.0 (0.0-0.1) K/uL Nucleated RBC % 0.0 /100WBC Nucleated RBCs # 0 K/uL Sodium 136 (136-148) mmol/L Potassium 4.8 (3.5-5.1) mmol/L Chloride 98 (98-107) mmol/L Carbon Dioxide 18.8 L (21.0-32.0) mmol/L BUN 58 H (7.0-18.0) mg/dL Creatinine 6.9 H (0.8-1.3) mg/dL Est Cr Clr Drug Dosing 9.85 mL/min Estimated GFR (MDRD) 8.0 ml/min Glucose 191 H (74-106) mg/dL Calcium 9.8 (8.5-10.1) mg/dL Total Bilirubin 0.8 (0.2-1.0) mg/dL AST 10 L (15-37) IU/L ALT 14 (14-63) IU/L Alkaline Phosphatase 88 (46-116) U/L Total Protein 6.5 (6.4-8.2) g/dL Albumin 3.1 L (3.4-5.0) g/dL Globulin 3.4 (2.6-4.0) g/dL Albumin/Globulin Ratio 0.9 (0.9-1.6) Urine Color YELLOW Urine Appearance SLT CLOUDY Urine pH 5.5 (5.0-8.0) Ur Specific [place] 1.020 (1.001-1.035) Urine Protein 30 H (NEGATIVE) mg/dL Urine Glucose (UA) NEGATIVE (NEGATIVE) mg/dL Urine Ketones NEGATIVE (NEGATIVE) mg/dL Urine Occult Blood MODERATE H (NEGATIVE) Urine Nitrite NEGATIVE (NEGATIVE) Urine Bilirubin NEGATIVE (NEGATIVE) Urine Urobilinogen 0.2 (<2.0) EU/dL Ur Leukocyte Esterase NEGATIVE (NEGATIVE) Urine RBC 2-4 (0-2/HPF) Urine WBC 0-3 (0-5/HPF) Ur Epithelial Cells OCCASIONAL (NONE-FEW) Amorphous Sediment LIGHT (NEGATIVE) Urine Bacteria FEW (NEGATIVE) Meds: Medications Discontinued Medications Generic Name Dose Route Start Last Admin Trade Name Sima PRN Reason Stop Dose Admin Albuterol/Ipratropium 3 ml 04/22/19 21:05 Duoneb 3.0-0.5 Mg/3 Ml NEB 04/22/19 21:06 ONETIME ONE Departure - Departure Time of Disposition: 21:06 Disposition: DC/Tfer to Acute Hospital 02 Condition: Good Clinical Impression: Acute renal failure (ARF) - Discharge Information Referrals: Los Bravo MD [Primary Care Provider] - Forms: ED Department Discharge - My Orders Last 24 Hours: My Active Orders 04/22/19 20:00 Thompson Catheter Insertion [Insert Urinary Catheter] [OM.PC] Q24H 04/22/19 21:05 RT Aerosol Therapy [RC] ASDIRECTED - Assessment/Plan Last 24 Hours: My Active Orders 04/22/19 20:00 [place] Catheter Insertion [Insert Urinary Catheter] [OM.PC] Q24H 04/22/19 21:05 RT Aerosol Therapy [RC] ASDIRECTED
[2019-04-22] MEDS ORDERED: Albuterol/Ipratropium 3.0-0.5 MG/3 ML Neb Soln NEB ONE (21:05)
[2019-04-22 21:10] VITALS: BP 154/64
== END 2019-04-22 22:00 ==
LOC: MW.ED 19:34
DX: N17.9 Acute kidney failure, unspecified (principal); E11.9 Type 2 diabetes mellitus without complications; I10 Essential (primary) hypertension; Z86.19 Personal history of other infectious and parasitic diseases; Z79.82 Long term (current) use of aspirin; Z79.899 Other long term (current) drug therapy; Z79.4 Long term (current) use of insulin
CPT/HCPCS: 36415; 80053; 81001; 85025; 93005; 99284-25; J7620-GY

== ENCOUNTER 2021-05-22 21:40 | Emergency (ER) | payer MEDICARE, OTHER ==
[2021-05-22 22:03] VITALS: PULSE 92
[2021-05-22] MEDS ORDERED: Cephalexin 500 MG Cap PO ONE (22:05)
--- NOTE | 2021-05-22 22:09 | EDM.PDOC ---
ED HPI GENERAL MEDICAL PROBLEM - General Chief Complaint: Lower Extremity Injury/Pain Stated Complaint: LEFT FOOT HURTING Time Seen by Provider: 05/22/21 21:41 - History of Present Illness INITIAL COMMENTS - FREE TEXT/NARRATIVE: History of present illness: [] This 70-year-old diabetic reports that 2 weeks ago he injured his left ankle. He was x-rayed elsewhere. He does not have the films or report. He says they told him it was normal. Included in this injury was an abrasion superior to the medial malleolus about 3 inches. Now his foot is gradually over the last few days gotten red and swollen. Now it is very painful. Review of systems: As per history of present illness and below otherwise all systems reviewed and negative. Past medical history: As per history of present illness and as reviewed below otherwise noncontributory. Surgical history: As per history of present illness and as reviewed below otherwise noncontributory. Social history: No reported history of drug or alcohol abuse. Family history: As per history of present illness and as reviewed below otherwise noncontributory. Physical exam: Constitutional - well developed, well-nourished and in no acute distress HEENT - normocephalic, no evidence of trauma - external nose and mouth normal - no mass in neck and no JVD - mucosae moist EYES - full EOM, PERRL, no icterus - no evidence of inflammation, injection, or drainage Respiratory - no respiratory distress, equal bilateral expansion, lungs clear to auscultation and no abnormal lung sounds Cardiovascular -vascular structures intact in the distal left upper extremity regular Rhythm with S1 and S2 appreciated and no murmur, gallop or rub. Musculoskeletal tenderness and swelling of the left ankle and foot-otherwise no gross deformity of long bones or joints - no tenderness, swelling or edema Neurologic -feeling of movement intact in the distal left upper extremity alert and oriented times four - CN II-XII grossly intact - motor sensory and coordination symmetrically normal Psychiatric - appropriate mood and affect with normal thought content Hematologic - No petechiae or purpura - mucosa appropriate color and sclera not pale - normal nail bed color and refill Integument -the skin above the left ankle has a medial abrasion that has eschar and healing. The skin from the lowest one fourth of the leg to the foot is edematous with erythema and warmth. No rash or evidence of trauma - normal turgor Diagnostics: [] Therapeutics: [] Impression: [] Plan: [] Definitive disposition and diagnosis as appropriate pending reevaluation and review of above. left foot Pain Score (Numeric/FACES): 7 - Related Data Allergies Allergy/AdvReac Type Severity Reaction Status Date / Time No Known Allergies Allergy Verified 05/22/21 21:58 Home Meds: Home Meds Aspirin [Floyd Aspirin] 81 mg PO DAILY 11/11/16 [History] Lisinopril 10 mg PO DAILY 11/11/16 [History] Tamsulosin HCl [Flomax] 0.8 mg PO DAILY 11/11/16 [History] amLODIPine [Norvasc] 10 mg PO BEDTIME 11/11/16 [History] atorvaSTATin Calcium [Atorvastatin Calcium] 80 mg PO BEDTIME 11/11/16 [History] hydroCHLOROthiazide [Hydrochlorothiazide] 25 mg PO DAILY 11/11/16 [History] metFORMIN HCl [Metformin HCl] 1,000 mg PO BID 11/11/16 [History] Albuterol Sulfate [Proair Respiclick] 90 mcg IH ASDIRECTED 04/22/19 [History] Alogliptin Benzoate [Alogliptin] 25 mg PO DAILY 04/22/19 [History] Budesonide/Formoterol [Symbicort 160-4.5 MCG] 1 puff INH BID 04/22/19 [History] Insulin Aspart [NovoLOG] 8 unit SUBCUT TID 04/22/19 [History] Insulin Glarg,Human.Rec.Analog [Lantus Solostar] 50 unit SUBCUT DAILY 04/22/19 [History] Latanoprost/Pf [Latanoprost 0.005% Eye Drop] 7.5 ml OP BEDTIME 04/22/19 [History] Magnesium Oxide 840 mg PO DAILY 04/22/19 [History] Terazosin HCl [Terazosin] 2 mg PO BEDTIME 04/22/19 [History] valACYclovir [Valtrex] 3,000 mg PO ASDIRECTED 04/22/19 [History] cephALEXin [Cephalexin] 500 mg PO BID 10 Days #20 capsule 05/22/21 [Rx] Past Medical History - Past Health History Medical/Surgical History: Denies Medical/Surgical History HEENT History: Reports: Impaired Vision Other HEENT History: wears glasses Cardiovascular History: Reports: Hypertension Respiratory History: Reports: None Other Respiratory History: pt reports being treated with steriod to help breathing Gastrointestinal History: Reports: None Genitourinary History: Reports: None Other Genitourinary History: difficulty intiating urine flow Musculoskeletal History: Reports: Back Pain, Chronic Neurological History: Reports: None Psychiatric History: Reports: None Endocrine/Metabolic History: Reports: Diabetes, Type II Insulin Pump Model and Stereoptician: None Hematologic History: Reports: None Immunologic History: Reports: None Oncologic (Cancer) History: Reports: None Dermatologic History: Reports: Cellulitis - Infectious Disease History Infectious Disease History: Reports: Chicken Pox - Past Surgical History GI Surgical History: Reports: Hernia, Abdominal Social & Family History - Family History Family Medical History: No Pertinent Family History - Caffeine Use Caffeine Use: Reports: Soda - Recreational Drug Use Recreational Drug Use: No Review of Systems - Review of Systems Review Of Systems: Comprehensive ROS is negative, except as noted in HPI. ED EXAM, GENERAL - Physical Exam Exam: See Below Free Text/Narrative:: My physical exam is in the HPI Course - Vital Signs Last Recorded V/S: Last Vital Signs Temp 36.2 C 05/22/21 21:45 Pulse 92 05/22/21 21:45 Resp 18 05/22/21 21:45 BP 143/88 H 05/22/21 21:45 Pulse Ox 95 05/22/21 21:45 - Orders/Labs/Meds Meds: Medications Discontinued Medications Generic Name Dose Route Start Last Admin Trade Name Freq PRN Reason Stop Dose Admin Cephalexin 500 mg 05/22/21 22:05 Cephalexin 500 Mg Cap PO 05/22/21 22:06 ONETIME ONE Departure - Departure Time of Disposition: 22:07 Disposition: Home, Self-Care 01 Condition: Good Clinical Impression: Cellulitis of left lower extremity - Discharge Information Prescriptions: cephALEXin [Cephalexin] 500 mg PO BID 10 Days #20 capsule Instructions: Cellulitis, Adult, [id number] Referrals: PCP,None [Primary Care Provider] - Forms: ED Department Discharge Additional Instructions: Warm soaks are helpful in giving the white blood cells and antibiotic an advantage of the bacteria and infected skin. Since you are diabetic watch your blood sugar. If you have shaking chills feel weak or have difficulty keeping her medicine down you need to be seen again. [facility] [address] [place] [address] [facility] [address] [place] [address] The following information is given to patients seen in the emergency department who are being discharged to home. This information is to outline your options for follow-up care. We provide all patients seen in our emergency department with a follow-up referral. The need for follow-up, as well as the timing and circumstances, are variable depending upon the specifics of your emergency department visit. If you don't have a primary care physician on staff, we will provide you with a referral. We always advise you to contact your personal physician following an emergency department visit to inform them of the circumstance of the visit and for follow-up with them and/or the need for any referrals to a consulting specialist. The emergency department will also refer you to a specialist when appropriate. This referral assures that you have the opportunity for follow-up care with a specialist. All of these measure are taken in an effort to provide you with optimal care, which includes your follow-up. Under all circumstances we always encourage you to contact your private physician who remains a resource for coordinating your care. When calling for follow-up care, please make the office aware that this follow-up is from your recent emergency room visit. If for any reason you are refused follow-up, please contact the [facility] Emergency Department at and asked to speak to the emergency department charge nurse. Sepsis Event Note (ED) - Focused Exam Vital Signs: Vital Signs Temp Pulse Resp BP Pulse Ox 05/22/21 21:45 36.2 C 92 18 143/88 H 95
[2021-05-22 22:28] VITALS: BP 134/81
== END 2021-05-22 22:25 | disposition home or self-care (01) ==
LOC: MW.ED 21:40
DX: L03.116 Cellulitis of left lower limb (principal); I10 Essential (primary) hypertension; E11.9 Type 2 diabetes mellitus without complications; Z79.82 Long term (current) use of aspirin; Z79.899 Other long term (current) drug therapy; Z79.4 Long term (current) use of insulin
CPT/HCPCS: 99283; A9270

== ENCOUNTER 2021-09-26 15:48 | Emergency (ER) | payer OTHER ==
--- NOTE | 2021-09-26 16:32 | PCM.EKG ---
#1 Interpretation EKG Interpretation Comments: EKG done 09/26/2021 at 1616 hrs. shows sinus rhythm heart rate 89 MT 132 QT duration 451 [place] XX 1 nonspecific T abnormality in the lateral leads compared to 06/23/2019 no change impression no acute injury
[2021-09-26] MEDS ORDERED: Sodium Chloride 0.9% 10 ML Syringe FLUSH PRN (17:09)
[2021-09-26] MEDS ORDERED: Sodium Chloride 0.9% 2.5 ML Syringe FLUSH PRN (17:09)
[2021-09-26] MEDS ORDERED: Sodium Chloride 0.9% 1,000 ML IV ONE ×2 (17:10→18:25)
--- NOTE | 2021-09-26 17:11 | EDM.PDOC ---
ED HPI GENERAL MEDICAL PROBLEM - General Chief Complaint: Cardiovascular Problem Stated Complaint: HIGH BLOOD PRESSURE SENT BY [place] NURSE Time Seen by Provider: 09/26/21 15:52 Source of Information: Reports: Patient History Limitations: Reports: No Limitations - History of Present Illness INITIAL COMMENTS - FREE TEXT/NARRATIVE: HISTORY AND PHYSICAL: History of present illness: Is a 70-year-old male who presents to the emergency department with complaints of hypotension with a blood pressure of 74/42 at home around 2 PM today. The patient states that he takes his blood pressure when his machine indicates but did notice that he had some slight dizziness prior to taking his blood pressure. Patient is a diabetic and checked his glucose thinking that could be the cause, however his glucose was normal. The patient just recently started on cilostazol 100mg which was prescribed by a vascular surgeon for clarification in [place] which she started yesterday. The patient states that he has been otherwise healthy with no cough cold or difficulty with taking fluids. She states that he has not taken any other medications that are not prescribed. Patient denies any fever, chills, headache, change in vision, syncope or near syncope. Denies any chest pain, back pain, shortness of breath or cough. Denies any abdominal pain, nausea, vomiting, diarrhea, constipation or dysuria. Has not noted any blood in urine or stool. Patient has been eating and drinking appropriately. Review of systems: As per history of present illness and below otherwise all systems reviewed and negative. Past medical history: As per history of present illness and as reviewed below otherwise noncontributory. Surgical history: As per history of present illness and as reviewed below otherwise noncontributory. Social history: See social history for further information Family history: As per history of present illness and as reviewed below otherwise noncontributory. Physical exam: General: Well developed and well nourished. Alert and orientated x 3. Nontoxic in appearance and in no acute distress. Vital signs are stable and have been reviewed by me. Nursing notes were reviewed. HEENT: Atraumatic, normocephalic, pupils equal and reactive bilaterally, negative for conjunctival pallor or scleral icterus, mucous membranes moist, TMs normal bilaterally, throat clear, neck supple, nontender, trachea midline. No drooling or trismus noted. No meningeal signs. No hot potato voice noted. Lungs: Clear to auscultation bilaterally. No wheezes, rales, or rhonchi. Chest nontender. Normal work of breathing, no accessory muscles used. Heart: S1S2, regular rate and rhythm without overt murmur, gallops, or rubs. No JVD. No peripheral edema Abdomen: Soft, nondistended, nontender. Normoactive bowel sounds. Negative for masses or costovertebral tenderness. Skin: Intact, warm, dry. No lesions or rashes noted. Hematologic: No petechiae or purpra. Mucosa appropriate color and normal nail bed color and refill. Extremities: Atraumatic, moves all extremities per self without difficulty or deficits, negative for cords or calf pain. Neurovascular unremarkable. Neuro: Awake, alert, oriented. Cranial nerves II through XII unremarkable. Cerebellum unremarkable. Motor and sensory unremarkable throughout. Exam nonfocal. Psychiatric: Mood and affect are appropriate. Normal thought process. Answering questions appropriately. Notes: *This patient was seen and evaluated during the 2019 SARS-CoV-2 novel coronavirus pandemic period. Community viral transmission is ongoing at time of this encounter and the emergency department is operating under pandemic response procedures. As stated above the patient is a 70-year-old male who presents to the emergency room with hypotension which she stated was 74/42 at home around 2 PM. He recently started on a clarification medication prescribed by his vascular surgeon was cilostazol 100mg. This medication does cause vasodilation and in a small percentage hypotension. I did bedside orthostatic vitals and lying down the patient's blood pressure was 97/58 with a pulse of 80. Standing up the blood pressure 83/62 and a pulse of 90. The patient is more than 10 friends in the diastolic and as such orthostatic. I will draw labs and give the patient IV fluids. The patient is agreeable with this plan. CBC is unremarkable. The patient's INR is within normal limits. The patient's chemistry panel is remarkable for a BUN of 30 and a creatinine of 1.6. The patient's glucose is 158. The patient's influenza a and B and Covid are all negative. The patient's blood pressure after the first liter of fluids was 88/62 with a pulse of 70 lying down and standing was 87/52 with a pulse of 60. I will hydrate the patient with 1 more liter and then possible observation admission due to his new medication of cilostazol 100mg for which he took half of. After the second liter of fluids the patient's pressure is 100/ 60 and he is fee ling much better. The patient requests to go home and will return if he started to feel dizzy or fatigued or if he notices his blood pressure decreasing. The patient will follow up with his vascular surgeon regarding the need for medication adjustment I have talked with the patient about today's findings, in addition to providing specific details for plan of care. Reassessment at the time of disposition demonstrates that the patient is in no acute distress. The patient is stable for discharge, counseling was provided and we discussed in great detail signs and symptoms that would prompt them to return to the Emergency Department. Medication, follow up and supportive care measures were reviewed and discussed. Voices understanding and is agreeable to plan of care. Denies any further quest ions or concerns at this time. Diagnostics: EKG, CBC, CMP, troponin, chest x-ray Therapeutics: IV fluids Impression: Hypotension, dehydration Plan: 1. You were evaluated today on an emergent basis. Your concerns over your low blood pressure was evaluated with blood work and vital signs and you were found to be volume depleted. You were given 2 L of fluids. Your new medication cilostazol because vasodilation which could contribute towards your low blood pressure. There is a small percentage of patients that this medication does cause low blood pressure. On Wednesday call your physician that prescribes your medication and talk to him about how your blood pressure is doing. You might need to talk about revisiting trying the medication again or you just might not be able to tolerate it. If you develop and feel dizzy or fatigued or like your blood pressure is getting low please take it again and if need return to the emergency department. 2. You can alternate Tylenol and ibuprofen as needed for pain and fever management. 3. We encourage you to follow up with your primary care provider and/or recommended specialist in the next few days for re-evaluation and further care/management. 4. If your symptoms should worsen, new symptoms develop or any of the signs and symptoms we discussed should arise please return to the emergency room or call 911 (if needed). Definitive disposition and diagnosis as appropriate pending reevaluation and review of above. Back Pain Score (Numeric/FACES): 6 - Related Data Allergies Allergy/AdvReac Type Severity Reaction Status Date / Time No Known Allergies Allergy Verified 12/31/21 16:08 Home Meds: Home Meds Aspirin [[place] Aspirin] 81 mg PO BID 11/11/16 [History] Lisinopril 20 mg PO DAILY 11/11/16 [History] atorvaSTATin Calcium [Atorvastatin Calcium] 80 mg PO BEDTIME 11/11/16 [History] Alogliptin Benzoate [Alogliptin] 25 mg PO DAILY 04/22/19 [History] Insulin Aspart [NovoLOG] 18 unit SUBCUT TID 04/22/19 [History] Insulin Glarg,Human.Rec.Analog [Lantus Solostar] 33 unit SUBCUT BID 04/22/19 [History] Latanoprost/Pf [Latanoprost 0.005% Eye Drop] 2 drop OP BEDTIME 04/22/19 [History] Cyclobenzaprine [Flexeril] 10 mg PO DAILY 05/22/21 [History] Empagliflozin [Jardiance] 12.5 mg PO DAILY 05/22/21 [History] cephALEXin [Cephalexin] 500 mg PO BID 10 Days #20 capsule 05/22/21 [Rx] traMADol [Ultram] 50 mg PO DAILY 05/22/21 [History] cilostazoL [Cilostazol] 0.5 tab PO BID 09/26/21 [History] Past Medical History - Past Health History Medical/Surgical History: Denies Medical/Surgical History HEENT History: Reports: Impaired Vision Other HEENT History: wears glasses Cardiovascular History: Reports: High Cholesterol, Hypertension Respiratory History: Reports: COPD Other Respiratory History: pt reports being treated with steriod to help breathing Gastrointestinal History: Reports: None Genitourinary History: Reports: None Other Genitourinary History: difficulty intiating urine flow Musculoskeletal History: Reports: Back Pain, Chronic Neurological History: Reports: None Psychiatric History: Reports: None Endocrine/Metabolic History: Reports: Diabetes, Type II Insulin Pump Model and Sample Carrier: None Hematologic History: Reports: None Immunologic History: Reports: None Oncologic (Cancer) History: Reports: None Dermatologic History: Reports: Cellulitis - Infectious Disease History Infectious Disease History: Reports: Chicken Pox, Shingles - Past Surgical History GI Surgical History: Reports: Hernia, Abdominal Social & Family History - Family History Family Medical History: No Pertinent Family History Cardiac: Reports: [place] Oncologic: Reports: Other (See Below) Other Oncologic Family History: Unknown type of CA, paternal - Caffeine Use Caffeine Use: Reports: None - Recreational Drug Use Recreational Drug Use: Yes Recreational Drug Type: Reports: Marijuana/Hashish Recreational Drug Use Frequency: Rarely ED ROS GENERAL - Review of Systems Review Of Systems: Comprehensive ROS is negative, except as noted in HPI. ED EXAM, GENERAL - Physical Exam Exam: See Below (See Dictation) Course - Vital Signs Last Recorded V/S: Last Vital Signs Temp 97.6 F 09/26/21 16:11 Pulse 76 09/26/21 19:33 Resp 18 09/26/21 19:33 BP 100/60 09/26/21 19:33 Pulse Ox 96 09/26/21 19:33 - Orders/Labs/Meds Orders: Active Orders 24 hr Category Date Time Status Saline Lock Insert [OM.PC] Stat Oth 09/26/21 17:09 Ordered Labs: Laboratory Tests 09/26/21 09/26/21 09/26/21 Range/Units 17:10 17:10 17:10 WBC 8.08 (4.0-11.0) K/uL RBC 4.85 (4.50-5.90) M/uL Hgb 14.1 (13.0-17.0) g/dL Hct 43.9 (38.0-50.0) % MCV 90.5 (80.0-98.0) fL MCH 29.1 (27.0-32.0) pg MCHC 32.1 (31.0-37.0) g/dL RDW Std Deviation 46.8 (28.0-62.0) fl RDW Coeff of Rachel 14 (11.0-15.0) % Plt Count 207 (150-400) K/uL MPV 10.90 (7.40-12.00) fL Neut % (Auto) 50.3 (48.0-80.0) % Lymph % (Auto) 37.0 (16.0-40.0) % [place] % (Auto) 10.4 (0.0-15.0) % Eos % (Auto) 2.2 (0.0-7.0) % Baso % (Auto) 0.1 (0.0-1.5) % Neut # (Auto) 4.1 (1.4-5.7) K/uL Lymph # (Auto) 3.0 H (0.6-2.4) K/uL [place] # (Auto) 0.8 (0.0-0.8) K/uL Eos # (Auto) 0.2 (0.0-0.7) K/uL Baso # (Auto) 0.0 (0.0-0.1) K/uL Nucleated RBC % 0.0 /100WBC Nucleated RBCs # 0 K/uL INR 0.96 Sodium 139 (136-148) mmol/L Potassium 4.0 (3.5-5.1) mmol/L Chloride 102 (98-107) mmol/L Carbon Dioxide 27.5 (21.0-32.0) mmol/L BUN 30 H (7.0-18.0) mg/dL Creatinine 1.6 H (0.8-1.3) mg/dL Est Cr Clr Drug Dosing 41.31 mL/min Estimated GFR (MDRD) 43.2 ml/min Glucose 158 H (74-106) mg/dL Calcium 8.6 (8.5-10.1) mg/dL Magnesium 2.0 (1.8-2.4) mg/dL Total Bilirubin 0.4 (0.2-1.0) mg/dL AST 14 L (15-37) IU/L ALT 21 (14-63) IU/L Alkaline Phosphatase 107 (46-116) U/L Troponin I < 0.050 (0.000-0.056) ng/mL Total Protein 6.9 (6.4-8.2) g/dL Albumin 3.2 L (3.4-5.0) g/dL Globulin 3.7 (2.6-4.0) g/dL Albumin/Globulin Ratio 0.9 (0.9-1.6) Influenza Type A RNA (NEGATIVE) Influenza Type B RNA (NEGATIVE) SARS-CoV-2 RNA (ESTEFANI) (NEGATIVE) 09/26/21 Range/Units 17:11 WBC (4.0-11.0) K/uL RBC (4.50-5.90) M/uL Hgb (13.0-17.0) g/dL Hct (38.0-50.0) % MCV (80.0-98.0) fL MCH (27.0-32.0) pg MCHC (31.0-37.0) g/dL RDW Std Deviation (28.0-62.0) fl RDW Coeff of Rachel (11.0-15.0) % Plt Count (150-400) K/uL MPV (7.40-12.00) fL Neut % (Auto) (48.0-80.0) % Lymph % (Auto) (16.0-40.0) % [place] % (Auto) (0.0-15.0) % Eos % (Auto) (0.0-7.0) % Baso % (Auto) (0.0-1.5) % Neut # (Auto) (1.4-5.7) K/uL Lymph # (Auto) (0.6-2.4) K/uL [place] # (Auto) (0.0-0.8) K/uL Eos # (Auto) (0.0-0.7) K/uL Baso # (Auto) (0.0-0.1) K/uL Nucleated RBC % /100WBC Nucleated RBCs # K/uL INR Sodium (136-148) mmol/L Potassium (3.5-5.1) mmol/L Chloride (98-107) mmol/L Carbon Dioxide (21.0-32.0) mmol/L BUN (7.0-18.0) mg/dL Creatinine (0.8-1.3) mg/dL Est Cr Clr Drug Dosing mL/min Estimated GFR (MDRD) ml/min Glucose (74-106) mg/dL Calcium (8.5-10.1) mg/dL Magnesium (1.8-2.4) mg/dL Total Bilirubin (0.2-1.0) mg/dL AST (15-37) IU/L ALT (14-63) IU/L Alkaline Phosphatase (46-116) U/L Troponin I (0.000-0.056) ng/mL Total Protein (6.4-8.2) g/dL Albumin (3.4-5.0) g/dL Globulin (2.6-4.0) g/dL Albumin/Globulin Ratio (0.9-1.6) Influenza Type A RNA NEGATIVE (NEGATIVE) Influenza Type B RNA NEGATIVE (NEGATIVE) SARS-CoV-2 RNA (ESTEFANI) NEGATIVE (NEGATIVE) Meds: Medications Discontinued Medications Generic Name Dose Route Start Last Admin Trade Name Freq PRN Reason Stop Dose Admin Sodium Chloride 1,000 mls @ 999 mls/hr 09/26/21 17:10 09/26/21 17:17 Normal Saline IV 09/26/21 18:10 999 mls/hr .BOLUS ONE Administration Sodium Chloride 1,000 mls @ 999 mls/hr 09/26/21 18:25 09/26/21 18:41 Normal Saline IV 09/26/21 19:25 999 mls/hr .BOLUS ONE Administration Sodium Chloride 10 ml 09/26/21 17:09 09/26/21 17:18 Sodium Chloride 0.9% 10 Ml Syringe FLUSH 10 ml ASDIRECTED PRN Administration Keep Vein Open Sodium Chloride 2.5 ml 09/26/21 17:09 09/26/21 17:18 Sodium Chloride 0.9% 2.5 Ml Syringe FLUSH 2.5 ml ASDIRECTED PRN Administration Keep Vein Open Departure - Departure Time of Disposition: 19:39 Disposition: Home, Self-Care 01 Condition: Good Clinical Impression: Dehydration Hypotension Qualifiers: Hypotension type: orthostatic hypotension Qualified Code(s): I95.1 - Orthostatic hypotension - Discharge Information *PRESCRIPTION DRUG MONITORING PROGRAM REVIEWED*: Not Applicable *COPY OF PRESCRIPTION DRUG MONITORING REPORT IN PATIENT MICHAEL: Not Applicable Instructions: Hypotension, [id number], Dehydration, Adult, [id number] Referrals: Adria Sanders, MANAGER EXPORT [Primary Care Provider] - Forms: ED Department Discharge Additional Instructions: The following information is given to patients seen in the emergency department who are being discharged to home. This information is to outline your options for follow-up care. We provide all patients seen in our emergency department with a follow-up referral. The need for follow-up, as well as the timing and circumstances, are variable depending upon the specifics of your emergency department visit. If you don't have a primary care physician on staff, we will provide you with a referral. We always advise you to contact your personal physician following an emergency department visit to inform them of the circumstance of the visit and for follow-up with them and/or the need for any referrals to a consulting specialist. The emergency department will also refer you to a specialist when appropriate. This referral assures that you have the opportunity for follow-up care with a specialist. All of these measure are taken in an effort to provide you with optimal care, which includes your follow-up. Under all circumstances we always encourage you to contact your private physician who remains a resource for coordinating your care. When calling for follow-up care, please make the office aware that this follow-up is from your recent emergency room visit. If for any reason you are refused follow-up, please contact the [facility] Emergency Department at and asked to speak to the emergency department charge nurse. [facility] - [facility] [address] [place] [address] [facility] [address] [place] [id number] Plan: 1. You were evaluated today on an emergent basis. Your concerns over your low blood pressure was evaluated with blood work and vital signs and you were found to be volume depleted. You were given 2 L of fluids. Your new medication cilostazol because vasodilation which could contribute towards your low blood pressure. There is a small percentage of patients that this medication does cause low blood pressure. On Wednesday call your physician that prescribes your medication and talk to him about how your blood pressure is doing. You might need to talk about revisiting trying the medication again or you just might not be able to tolerate it. If you develop and feel dizzy or fatigued or like your blood pressure is getting low please take it again and if need return to the emergency department. 2. You can alternate Tylenol and ibuprofen as needed for pain and fever management. 3. We encourage you to follow up with your primary care provider and/or recommended specialist in the next few days for re-evaluation and further care/management. 4. If your symptoms should worsen, new symptoms develop or any of the signs and symptoms we discussed should arise please return to the emergency room or call 911 (if needed). Sepsis Event Note (ED) - Evaluation Sepsis Screening Result: No Definite Risk - My Orders Last 24 Hours: My Active Orders 09/26/21 17:09 Saline Lock Insert [OM.PC] Stat - Assessment/Plan Last 24 Hours: My Active Orders 09/26/21 17:09 Saline Lock Insert [OM.PC] Stat
[2021-09-26 17:41] LABS: BLOOD UREA NITROGEN,BUN 30 mg/dL (7.0-18.0); CARBON DIOXIDE,CO2 27.5 mmol/L (21.0-32.0); CHLORIDE,CL 102 mmol/L (98-107); GLUCOSE RANDOM 158 mg/dL (74-106); SODIUM,NA 139 mmol/L (136-148)
[2021-09-26 17:56] LABS: CORONAVIRUS COVID-19 NAA NEGATIVE (NEGATIVE); INFLUENZA A NAA NEGATIVE (NEGATIVE); INFLUENZA B NAA NEGATIVE (NEGATIVE)
--- NOTE | 2021-09-26 18:10 | CR ---
INDICATION: Hypotension. COMPARISON: Chest radiograph September 29, 2017; CT abdomen and pelvis August 28, 2021. TECHNIQUE: Portable AP chest. FINDINGS: Normal size cardiac silhouette. Clear lung hsieh with no evidence of acute pneumonic infiltrates or CHF. No pneumothorax or pleural effusion. IMPRESSION: Negative portable AP chest. Dictated by Royal Ellis MD @ 09/26/2021 6:09:25 PM (Electronically Signed)
[2021-09-26 19:33] VITALS: BP 100/60; PULSE 76
== END 2021-09-26 19:47 | disposition home or self-care (01) ==
LOC: MW.ED 15:48
DX: I95.1 Orthostatic hypotension (principal); E86.0 Dehydration; E78.00 Pure hypercholesterolemia, unspecified; I10 Essential (primary) hypertension; J44.9 Chronic obstructive pulmonary disease, unspecified; E11.9 Type 2 diabetes mellitus without complications; Z79.82 Long term (current) use of aspirin; Z79.4 Long term (current) use of insulin; Z20.822 Contact with and (suspected) exposure to COVID-19; Z79.899 Other long term (current) drug therapy
CPT/HCPCS: 0240U; 36415; 71045; 80053; 83735; 84484; 85025; 85610; 93005; 99285; J7030

== ENCOUNTER 2021-10-24 09:41 | Emergency (ER) | payer OTHER ==
[2021-10-24] MEDS ORDERED: Ketorolac 60 MG/2 ML SDV IM ONE (11:59)
[2021-10-24 14:06] VITALS: BP 148/82; PULSE 79
== END 2021-10-24 12:14 | disposition home or self-care (01) ==
LOC: MW.ED 09:41
DX: S09.90XA Unspecified injury of head, initial encounter (principal); R04.0 Epistaxis; J44.9 Chronic obstructive pulmonary disease, unspecified; E78.00 Pure hypercholesterolemia, unspecified; I10 Essential (primary) hypertension; E11.9 Type 2 diabetes mellitus without complications; Z87.891 Personal history of nicotine dependence; Z79.82 Long term (current) use of aspirin; Z79.899 Other long term (current) drug therapy; Z79.4 Long term (current) use of insulin; W18.09XA Striking against other object with subsequent fall, initial encounter
CPT/HCPCS: 70450; 72125; 96372; 99283; J1885

== ENCOUNTER 2022-11-12 11:14 | Emergency (ER) | payer OTHER ==
[2022-11-12] MEDS ORDERED: Morphine 4 MG/ML Syringe IVPUSH ONE (11:28)
[2022-11-12 12:13] LABS: CARBON DIOXIDE,CO2 27.2 mmol/L (21.0-32.0); POTASSIUM,K 4.1 mmol/L (3.5-5.1)
[2022-11-12] MEDS ORDERED: Iopamidol 755 MG/ML 500 ML Multipack Bottle IVPUSH ONE (13:31)
[2022-11-12 15:02] VITALS: BP 110/52; PULSE 79
== END 2022-11-12 14:58 | disposition home or self-care (01) ==
LOC: MW.ED 11:14
DX: M79.81 Nontraumatic hematoma of soft tissue (principal); E78.00 Pure hypercholesterolemia, unspecified; I10 Essential (primary) hypertension; J44.9 Chronic obstructive pulmonary disease, unspecified; I25.10 Atherosclerotic heart disease of native coronary artery without angina pectoris; E11.9 Type 2 diabetes mellitus without complications; Z95.1 Presence of aortocoronary bypass graft; Z79.82 Long term (current) use of aspirin; Z79.4 Long term (current) use of insulin; Z79.02 Long term (current) use of antithrombotics/antiplatelets; Z79.899 Other long term (current) drug therapy; Z20.822 Contact with and (suspected) exposure to COVID-19
CPT/HCPCS: 36415; 71045; 71275; 80053; 83735; 83880; 84484; 85025; 85379; 85610; 85730; 87635; 93005; 93971; 96374; 99285; J2270; Q9967; 93010; 99284; U0002

== ENCOUNTER 2022-11-18 14:21 | Emergency (ER) | payer OTHER ==
[2022-11-18 15:07] VITALS: BP 139/72; PULSE 95
== END 2022-11-18 16:36 | disposition left against medical advice (07) ==
LOC: MW.ED 14:21
DX: M96.843 Postprocedural seroma of a musculoskeletal structure following other procedure (principal); E78.00 Pure hypercholesterolemia, unspecified; I10 Essential (primary) hypertension; J44.9 Chronic obstructive pulmonary disease, unspecified; E11.9 Type 2 diabetes mellitus without complications; Z79.82 Long term (current) use of aspirin; Z79.4 Long term (current) use of insulin; Z79.02 Long term (current) use of antithrombotics/antiplatelets; Z79.899 Other long term (current) drug therapy; Z98.890 Other specified postprocedural states
CPT/HCPCS: 93971-26-LT; 93971-LT; 99283

== ENCOUNTER 2023-09-17 17:36 | Emergency (ER) | payer OTHER | END 2023-09-17 20:01 | disposition left against medical advice (07) | LOC: MW.ED 17:36 | DX: Z53.21 Procedure and treatment not carried out due to patient leaving prior to being seen by health care provider (principal) ==

== ENCOUNTER 2024-12-17 21:00 | Emergency (ER) | payer OTHER | END 2024-12-17 22:17 | disposition left against medical advice (07) | LOC: MW.ED 21:00 | DX: Z53.21 Procedure and treatment not carried out due to patient leaving prior to being seen by health care provider (principal) ==

== ENCOUNTER 2025-08-15 16:06 | Emergency (ER) | payer OTHER | END 2025-08-15 16:52 | disposition left against medical advice (07) | LOC: MW.ED 16:06 | DX: Z53.21 Procedure and treatment not carried out due to patient leaving prior to being seen by health care provider (principal) ==